=== PATIENT | female | born 1960 | race Caucasian/White ===

== ENCOUNTER 2017-02-04 20:48 | Emergency (ER) | payer OTHER ==
--- NOTE | 2017-02-04 23:24 | ERNOTE ---
Lower Extremity HPI - Narrative Date of Service: 02/04/17 - General Lower Extremities Pain: leg: right Time Seen by Provider: 02/04/17 23:15 Source: patient Exam Limitations: no limitations - Immun/Allergies/Home Medications Immunizations: IMMUNIZATION HX Immunizations Up to Date Yes History of Influenza Vaccine Yes Allergies/Adverse Reactions: Allergies Allergy/AdvReac Type Severity Reaction Status Date / Time iodine Allergy Unknown Unverified 02/04/17 21:52 aspirin Allergy Unverified 02/04/17 21:52 adhesive tape AdvReac Unverified 02/04/17 21:52 ibuprofen AdvReac Unverified 02/04/17 21:52 Home Medications: HOME MEDICATIONS ALPRAZolam [Xanax] 0.5 mg PO Q8H PRN 11/15/12 [Last Taken Unknown] Albuterol Sulfate [Proair Hfa] 8.5 gm IH Q4H 11/15/12 [Last Taken Unknown] Aspirin [Aspirin Chewable] 81 mg PO DAILY 11/15/12 [Last Taken Unknown] Duloxetine HCl [Cymbalta] 90 mg PO DAILY 11/15/12 [Last Taken Unknown] Fenofibrate,Micronized [Fenofibrate] 200 mg PO DAILY 11/15/12 [Last Taken Unknown] Gabapentin 300 mg PO BID 11/15/12 [Last Taken Unknown] Metformin HCl 1,000 mg PO BID 11/15/12 [Last Taken Unknown] Methocarbamol [Robaxin-750] 750 mg PO TID 11/15/12 [Last Taken Unknown] Metoprolol Tartrate [Lopressor] 50 mg PO BID 11/15/12 [Last Taken Unknown] Montelukast Sodium [Singulair] 10 mg PO DAILY 11/15/12 [Last Taken Unknown] Nitroglycerin [Nitro-Dur] 0.4 mg TD PRN 11/15/12 [Last Taken Unknown] Omeprazole 40 mg PO BID 11/15/12 [Last Taken Unknown] Oxybutynin [Oxytrol] 1 each TD DAILY 11/15/12 [Last Taken Unknown] Potassium Chloride [Klor-Con M10] 20 meq PO BID 11/15/12 [Last Taken Unknown] Ranitidine HCl [Zantac] 150 mg PO DAILY 11/15/12 [Last Taken Unknown] Risperidone [Risperdal] 2 mg PO DAILY 11/15/12 [Last Taken Unknown] Rizatriptan Benzoate [Maxalt] 10 mg PO PRN 11/15/12 [Last Taken Unknown] Simvastatin [Zocor] 80 mg PO DAILY 11/15/12 [Last Taken Unknown] Sucralfate [Carafate] 1 g PO QID 11/15/12 [Last Taken Unknown] Cephalexin Monohydrate [Keflex] 500 mg PO BID #0 capsule 11/16/12 [Last Taken Unknown] HYDROcodone/ACETAMINOPHEN [Vicodin 5-325] 1 each PO Q4H PRN #0 tablet 11/16/12 [ Last Taken Unknown] Naproxen [Naprosyn] 500 mg PO BID PRN #60 tab 02/05/17 [Last Taken Unknown] - History of Present Illness Narrative: Pt. comes in with c/o R knee pain since 1830 this evening after she fell holding open the door. Pt. states that she has occasional falls due to her spasticity and extrapyramidial movements. Pt. denies any SOB, CP, numbness, tingling, prehospital treatment alleviating factors but does state that movement exacerbates the pain. Review of Systems - Review of Systems Constitutional: Present: no symptoms reported. Absent: recent illness, fever, chills, weakness, fatigue, malaise EYE: Present: no symptoms reported ENT: Present: no symptoms reported Respiratory: Present: no symptoms reported. Absent: shortness of breath, cough , wheezing Cardiology: Present: no symptoms reported. Absent: chest pain, palpitations, edema Gastrointestinal/Abdominal: Present: no symptoms reported Genitourinary: Present: no symptoms reported Musculoskeletal: Present: joint pain - R knee Skin: Present: no symptoms reported Neurological: Present: no symptoms reported. Absent: headache, dizziness/light- headedness, numbness, tingling Endocrine: Present: no symptoms reported All Other Systems: All systems neg except as marked - Patient's Past Medical History Patient History - Medical: No pertinent hx - Immunizations Immunizations Up to Date: Yes History of Influenza Vaccine: Yes Physical Exam - Physical Exam General Appearance: Present: wd/wn, alert, no apparent distress Eye Exam: Normal inspection: bilateral, PERRL: bilateral, EOMI: bilateral Ears, Nose, Throat: Present: normal ENT inspection, normal pharynx Neck: Present: normal inspection, nontender. Absent: lymphadenopathy (R), lymphadenopathy (L) Respiratory: Present: no respiratory distress, normal breath sounds, no accessory muscle use, chest nontender, lungs clear Cardiovascular/Chest: Present: regular rate, rhythm, no murmur, normal peripheral pulses Gastrointestinal/Abdominal: Present: normal bowel sounds, nontender, nondistended, soft, no organomegaly Back Exam: Present: normal inspection Extremity Exam: Present: normal range of motion, bony tenderness - R prox medial fib and R prox lateral tib Neurological Exam: Present: alert, oriented, normal mood/affect, no motor/ sensory deficits, 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 Absent: pallor, skin rash ED Progress - Vital Signs Patient's Vital Signs:: I have reviewed the patient's vital signs. Vital Signs: Vital Signs 02/04/17 21:41 Temperature 36.4 C L Pulse Rate 98 Respiratory 18 Rate Blood Pressure 145/81 O2 Sat by Pulse 92 Oximetry - X-Ray X-Ray #1 X-Ray: tibula/fibula Interpretation: Interp. by me X-ray Comments: arthritic changes no obvious acute fracture - Progress/Reassessment Chief Complaint: Lower Extremity Pain/ Injury Departure Clinical Impression: Contusion of knee and lower leg Qualifiers: Encounter type: initial encounter Laterality: right Qualified Code(s): S80.01XA - Contusion of right knee, initial encounter; S80.11XA - Contusion of right lower leg, initial encounter - Departure Disposition: Home self-care Condition: Good Instructions: Contusion, [id number] Additional Instructions: Please follow up with primary provider in 2-3 days if no improvement. Please keep R leg elevated. Please apply ice and heat as needed for pain and swelling. Please wear cora wrap at all times except when showering for a week. Prescriptions: Naproxen [Naprosyn] 500 mg PO BID PRN #60 tab PRN Reason: Pain
--- OUTSIDE RECORDS SUMMARY | 2017-02-04 23:27 | XMS REPORT | Continuity of Care Document ---
:1960 Author Organization [facility] ([facility]) Address [address] [place] [address] Phone [phone] Care Team Providers Name Role Phone Buster Hernandez Primary Care Provider [phone] Source Comments This disclosure is being made pursuant to the Care Everywhere program, applicable federal and state laws, and may not contain all informaitonavailable regarding this patient.[facility] ([facility]) Active Allergies and Adverse Reactions Allergen Noted Date Severity Reactions Comments Adhesive Tape Urticaria (Hives) Aspirin Nausea & Vomiting Bee Stings Respiratory Distress,Angioedema Ibuprofen Unknown Iodine And Iodide Urticaria (Hives) Containing Products Penicillins OTHER "Doesn't work". Current Medications Prescription Sig. Disp. Refills Start Date End Date Status albuterol (PROAIR Use 2 Puffs by inhalation Active HFA) 90 every 6 hours as needed. mcg/Actuation Indications: asthma inhaler ALPRAZolam 0.5 mg Take 0.5 mg by mouth 2 Active tablet times daily as needed. Indications: Anxiety aspirin 81 mg EC Take 81 mg by mouth Active tablet daily. Indications: Myocardial Infarction Prevention methocarbamol 500 Take 500 mg by mouth 2 Active mg tablet times daily. Indications: fibromyalgia fenofibrate Take 48 mg by mouth at Active (TRICOR) 48 mg bedtime. Indications: tablet Hypercholesterolemia gabapentin 300 mg Take 900 mg by mouth 2 Active capsule times daily. Indications: pain metformin 1,000 mg Take 1,000 mg by mouth 2 Active tablet times daily. Indications: Type 2 Diabetes Mellitus montelukast Take 10 mg by mouth at Active (SINGULAIR) 10 mg bedtime. Indications: tablet Allergic Rhinitis, asthma potassium chloride Take 20 mEq by mouth 2 Active (KLOR-CON 10) 10 times daily. mEq XR tablet Indications: Hypokalemia QUEtiapine Take 100 mg by mouth at Active (SEROQUEL) 100 mg bedtime. Indications: tablet anxiety sucralfate 1000 mg Take 1 g by mouth 2 times Active tablet daily. Indications: Gastroesophageal Reflux simvastatin 80 mg Take 80 mg by mouth every Active tablet evening. Indications: Hypercholesterolemia citalopram 20 mg Take 20 mg by mouth Active tablet daily. Indications: Depression rizatriptan Take 10 mg by mouth as Active (MAXALT-GRAIN PROCESSOR) 10 mg needed. Take 1 tablet at disintegrating onset of migraine, may tablet repeat in 2 hours Indications: Migraine ranitidine (ZANTAC Take 75 mg by mouth 2 Active 75) 75 mg tablet times daily. oxybutynin 5 mg Take 1 Tab by mouth every 90 Tab 3 07/27/2013 Active tablet 6 hours as needed. Indications: URINARY URGE INCONTINENCE, URINARY URGENCY metoPROLol tartrate Take 50 mg by mouth 2 Active 50 mg tablet times daily. oxybutynin 5 mg Take 1 Tab by mouth every 30 Tab 3 04/04/2014 Active tablet 6 hours as needed. Indications: URINARY URGE INCONTINENCE Active Problems Problem Noted Date Urgency of urination 10/29/2012 Urge incontinence 10/29/2012 Vertigo, peripheral 08/25/2011 Dizziness and giddiness 08/24/2011 Abnormality of gait 07/18/2008 Galactorrhea not associated with childbirth 09/18/2005 Social History Tobacco Use Types Packs/Day Years Used Date Never Smoker Last Filed Vital Signs Vital Sign Reading Time Taken Blood Pressure 127/74 07/27/2013 2:47 PM CDT Pulse 76 07/27/2013 2:47 PM CDT Temperature 36.6 C (97.9 F) 07/27/2013 2:47 PM CDT Respiratory Rate 20 07/27/2013 2:47 PM CDT Height 1.626 m (5' 4") 07/27/2013 2:47 PM CDT Weight 103.783 kg (228 lb 12.8 oz) 07/27/2013 2:47 PM CDT Body Mass Index 39.25 07/27/2013 2:47 PM CDT Oxygen Saturation 97% 10/29/2012 12:40 PM FACILITY TECHNICIAN Plan of Care Health Maintenance Due Date Last Done Comments HCV Screening 1960 Hepatitis B Vaccine (1 of 3 - Primary Series) 1960 Tdap Vaccine 12/17/1971 MMR Vaccine 1978 Td Vaccine 1978 Pneumococcal Vaccine (1 of 1 - PPSV23) 12/17/1979 Cervical Cancer Screening 1990 Mammogram 2000 Colonoscopy 2010 Influenza Vaccine: Seasonal (#1) 04/28/2016 Lipid Disorder Screening 08/25/2016 08/25/2011 Results from Last 3 Months Not on file
[2017-02-05 01:54] VITALS: BP 139/79
== END 2017-02-05 00:30 | disposition home or self-care (01) ==
LOC: ER 20:48
DX: S80.11XA Contusion of right lower leg, initial encounter (principal); S80.01XA Contusion of right knee, initial encounter; W18.39XA Other fall on same level, initial encounter; Z91.81 History of falling; Y92.9 Unspecified place or not applicable